=== PATIENT | male | born 2000 | race Caucasian/White ===

== ENCOUNTER 2025-08-18 17:24 | Emergency (ER) | payer SELFPAY ==
[~2025-08-18] VITALS: Ht 172.7 cm; Wt 81.6 kg
[2025-08-18 18:59] LABS: PLATELET COUNT (AUTO) 218 K/uL (150-450); RED BLOOD CELL COUNT(AUTO) 5.59 MIL/uL (4.5-6.0); RED CELL DISTRIBUTION WIDTH 13.0 % (11.5-15.0); WHITE BLOOD COUNT (AUTO) 13.9 K/uL (4.3-11.0)
[2025-08-18 19:09] LABS: CALCIUM, SERUM 9.1 mg/dL (8.5-10.1); CREATININE 0.8 mg/dL (0.6-1.3); SODIUM SERUM 143.0 mmol/L (136-145); UREA NITROGEN, BLOOD 17.0 mg/dL (7-18)
[2025-08-18 19:15] LABS: ASPARTATE AMINOTRANSFERASE 20.0 U/L (15-37); TOTAL PROTEIN, SERUM 7.4 g/dL (6.4-8.2)
[2025-08-18] MEDS ORDERED: IV NS 0.9% 250 ML IV ONE (19:20)
[2025-08-18] MEDS ORDERED: IOHEXOL-300 100 ML VIAL IV ONE (19:20)
[2025-08-18] MEDS ORDERED: CT SWABBABLE VALVE TRANS SET 1 EA INFUS.SET MC ONE (19:20)
[2025-08-18 20:24] VITALS: BP 128/69; TEMP 98.1; O2SAT 98
== END 2025-08-18 20:25 | disposition home or self-care (01) ==
LOC: ER 17:30
DX: R10.32 Left lower quadrant pain (principal); R07.89 Other chest pain
CPT/HCPCS: 99285; 74177; 71045; 93005; 85025; 80048; 83690; 80076; 36415; 84484; 83880; J7050; Q9967